=== PATIENT | female | born 1990 | race Hispanic/Latino ===

== ENCOUNTER 2017-11-25 19:32 | Emergency (ER) | payer MEDICAID ==
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
[2017-11-26] MEDS ORDERED: MOTRIN PO ONE (01:34)
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
[2017-11-26 06:01] VITALS: BP 114/71
== END 2017-11-26 02:10 | disposition home or self-care (01) ==
LOC: ED 19:32
DX: S13.4XXA Sprain of ligaments of cervical spine, initial encounter (principal); S39.012A Strain of muscle, fascia and tendon of lower back, initial encounter; F17.200 Nicotine dependence, unspecified, uncomplicated; V49.49XA Driver injured in collision with other motor vehicles in traffic accident, initial encounter; Y93.89 Activity, other specified; Y92.89 Other specified places as the place of occurrence of the external cause; Y99.8 Other external cause status
CPT/HCPCS: 36415; 72040; 72070; 84703

== ENCOUNTER 2019-08-08 16:24 | Observation (INO) | payer BC, MEDICAID ==
[2019-08-08] MEDS ORDERED: SODIUM CHLORIDE 0.9% 500 ML 500 ML IV SCH (17:47)
--- NOTE | 2019-08-08 19:25 | History and Physical Report ---
History of Present Illness Date of examination: 08/08/19 Date of admission: severe anemia with dizziness and fatigue Chief complaint: fatigue and dizziness History of present illness: Pt is a 29 y/o lady who presented to my office 08/07/18 with a complaint of fatigue and occasional dizziness. Laboratory studies showed Hgb of 5.8% today. Pt denies any evidence of GI bleeding. No menorhagia. Has a history of anemia but has not been worked up. direct admission was therefore requested Past History Past Medical History: anemia, other (depression) Past Surgical History: No surgical history Social history: smoking (marijuana) Family history: no significant family history Medications and Allergies Allergies Allergy/AdvReac Type Severity Reaction Status Date / Time No Known Allergies Allergy Unverified 11/25/17 21:31 Home Medications Medication Instructions Recorded Confirmed Last Taken Type Cyclobenzaprine [Flexeril] 10 mg PO QHS PRN #7 tablet 11/26/17 Unknown Rx Ibuprofen [Motrin] 600 mg PO Q8H PRN #30 tablet 11/26/17 Unknown Rx Active Meds: Active Medications Sodium Chloride (Nacl 0.9% 500 Ml) 500 mls @ 0 mls/hr IV ONCE DIPAK Stop: 08/09/19 17:46 Sodium Chloride (Sodium Chloride Flush Syringe 10 Ml) 10 ml IV BID DIPAK Sodium Chloride (Sodium Chloride Flush Syringe 10 Ml) 10 ml IV PRN PRN PRN Reason: LINE FLUSH Review of systems Constitutional: Well Nourished and Well developed. Fatigued Head: NC/ AT Eyes: Denies any visual impairments. No discharge from the eyes Nose: Denies any rhinorrhea or epistaxis Throats: Denies any post nasal drainage. Ears: Denies any hearing deficits Cardiovascular system: Denies any chest pain, shortness of breath, orthopnea, paroxysmal nocturnal dyspnea, or palpitation. Respiratory system: Denies any cough, difficulty breathing, wheezing, pleuritic chest pain, Gastrointestinal system: Denies any abdominal pain, nausea vomiting, hematemesis or melena. Neurological system: Denies any headache, slurred speech, facial droop, lateralizing weakness Genitalia system: Denies any dysuria, urinary frequency or urgency, urethral discharge Skin: No rashes, hyperpigmented spots. Hematological: Denies any cervical tenderness hemorrhages or petechia. Immunological: Denies any multiple septic spots, Lymphatic: Denies any generalized lymphadenopathy. Endocrine: Denies any polyuria, polydipsia, polyphagia. No heat or cold intolerance. Musculoskeletal system: No joint pain or swelling. Psych: No visual, tactile, auditory or hallucination Exam - Physical Exam Narrative exam: Constitutional: Well-nourished well-developed. In no distress Head: Normocephalic atraumatic Eyes: Conjunctival pallor. Pupils are equal round and reactive to light Nose: No enlarged turbinates, no septal deviation. Mouth: Moist mucous membranes. Neck: Supple no thyromegaly. No bruit. No JVD Heart: Regular rate and rhythm, S1-S2 normal. No rubs murmurs or gallop Lungs: Clear to auscultation bilaterally. no rales or rhonchi Abdomen: Soft, nontender. Bowel sound are present. Extremities: No edema, no cyanosis, no clubbing. Neuro: Alert oriented Oriented x3. No focal sensory or motor deficit. Skin: No rashes or hyperpigmented spots Musculoskeletal system: No joint pain or swelling Hematological: No petechia or subcutanous hemorrhages. Immunological: No multiple septic spots on the skin Lymphatic: No generalized lymphadenopathy Psychiatry: Euthymic. Calm. Assessment and Plan Pt is a 29 y/o lady who presented to my office 08/07/18 with a complaint of fatigue and occasional dizziness. Laboratory studies showed Hgb of 5.8% today. Pt denies any evidence of GI bleeding. No menorhagia. Has a history of anemia but has not been worked up. direct admission was therefore requested Admits to observation - Severe anemia Obtain TIBC,B12, folic acid, ferritin levels Stool for Hemoccult Type and screen 2 units of blood and transfuse each over 4 hours - Dizziness Secondary to severe anemia - Developed prophylaxis with SCDs - Advanced care planning: Patient is full code
[2019-08-08 21:18] LABS: Hematocrit 21.3 % (30.3-42.9); Hemoglobin 6.3 gm/dl (10.1-14.3); Mean Corpuscular HGB Conc 30 % (30-34); Platelet Count 378 K/mm3 (140-440); Red Blood Count 3.54 M/mm3 (3.65-5.03)
[2019-08-08 21:20] LABS: Mean Corpuscular Volume 60 fl (79-97)
[2019-08-08 21:28] LABS: INR 1.02 (0.87-1.13)
[2019-08-08 21:29] LABS: Partial Thromboplastin Time 28.8 Sec. (24.2-36.6)
[2019-08-08 21:45] LABS: Iron 10 ug/dL (37-170); Total Iron Binding Capacity 415 mcg/dL (250-450)
[2019-08-08 21:46] LABS: Alanine Aminotransferase 8 units/L (7-56); Albumin 4.4 g/dL (3.9-5); BUN/Creatinine Ratio 17; Blood Urea Nitrogen 10 mg/dL (7-17); Calcium 8.9 mg/dL (8.4-10.2); Hemolysis Index 16
[2019-08-08 22:03] LABS: Eosinophils % (Manual) 0 % (0.0-4.3); Total Cells Counted 100
[2019-08-08 22:04] LABS: Anisocytosis 1+; Platelet Estimate Consistent w Auto; Poikilocytosis 1+
[2019-08-08 22:05] LABS: Hypochromasia 2+; Target Cells 1+; Tear Drop Cells Few
[2019-08-09 06:35] VITALS: BP 108/60
--- NOTE | 2019-08-09 08:17 | Progress Note ---
Assessment and Plan Pt is a 29 y/o lady who presented to my office 08/07/18 with a complaint of fatigue and occasional dizziness. Laboratory studies showed Hgb of 5.8% today. Pt denies any evidence of GI bleeding. No menorhagia. Has a history of anemia but has not been worked up. direct admission was therefore requested - Severe anemia Iron leve very low. Stool for Hemoccult Had one unit of blood. will get second unit. F/u with post transfusion H/H - Dizziness Secondary to severe anemia - DVT prophylaxis with SCDs - Advanced care planning: Patient is full code - dispositon: d/c home after blood tranfusion Subjective Date of service: 08/09/19 Principal diagnosis: symtpomatic anemia Interval history: Dizziness improved Objective - Exam Narrative Exam: Constitutional: Well-nourished well-developed. In no distress Head: Normocephalic atraumatic Eyes: Conjunctival pallor. Pupils are equal round and reactive to light Nose: No enlarged turbinates, no septal deviation. Mouth: Moist mucous membranes. Neck: Supple no thyromegaly. No bruit. No JVD Heart: Regular rate and rhythm, S1-S2 normal. No rubs murmurs or gallop Lungs: Clear to auscultation bilaterally. no rales or rhonchi Abdomen: Soft, nontender. Bowel sound are present. Extremities: No edema, no cyanosis, no clubbing. Neuro: Alert oriented Oriented x3. No focal sensory or motor deficit. Skin: No rashes or hyperpigmented spots Musculoskeletal system: No joint pain or swelling Hematological: No petechia or subcutanous hemorrhages. Immunological: No multiple septic spots on the skin Lymphatic: No generalized lymphadenopathy Psychiatry: Euthymic. Calm. - Constitutional Vitals: Vital Signs - 12hr 08/09/19 08/09/19 08/09/19 02:20 02:35 03:05 Temperature 98.3 F 98.4 F 98.4 F Pulse Rate 68 69 69 Respiratory 18 20 20 Rate Blood Pressure 90/58 100/56 100/56 O2 Sat by Pulse 100 100 100 Oximetry 08/09/19 08/09/19 08/09/19 03:35 04:05 04:35 Temperature 98.3 F 98.4 F 98.3 F Pulse Rate 72 70 70 Respiratory 18 20 18 Rate Blood Pressure 100/58 105/58 108/60 O2 Sat by Pulse 100 100 100 Oximetry 08/09/19 08/09/19 08/09/19 05:15 05:30 06:00 Temperature 98.2 F 98.5 F 98.4 F Pulse Rate 69 70 70 Respiratory 20 20 18 Rate Blood Pressure 108/54 108/58 104/60 O2 Sat by Pulse 100 100 100 Oximetry 08/09/19 08/09/19 06:30 07:00 Temperature 98.4 F 98.4 F Pulse Rate 68 68 Respiratory 18 18 Rate Blood Pressure 108/60 108/60 O2 Sat by Pulse 100 100 Oximetry - Labs CBC & Chem 7: 08/08/19 21:00 08/08/19 21:00 Labs: Abnormal lab results 08/08/19 08/08/19 08/08/19 Range/Units 21:00 21:00 21:00 RBC 3.54 L (3.65-5.03) M/mm3 Hgb 6.3 L (10.1-14.3) gm/dl Hct 21.3 L (30.3-42.9) % MCV 60 L (79-97) fl MCH 18 L (28-32) pg RDW 21.0 H (13.2-15.2) % Sodium 136 L (137-145) mmol/L Carbon Dioxide 20 L (22-30) mmol/L Creatinine 0.6 L (0.7-1.2) mg/dL Iron 10 L (37-170) ug/dL Crossmatch 08/08/19 Range/Units 21:00 RBC (3.65-5.03) M/mm3 Hgb (10.1-14.3) gm/dl Hct (30.3-42.9) % MCV (79-97) fl MCH (28-32) pg RDW (13.2-15.2) % Sodium (137-145) mmol/L Carbon Dioxide (22-30) mmol/L Creatinine (0.7-1.2) mg/dL Iron (37-170) ug/dL Crossmatch See Detail
--- NOTE | 2019-08-09 08:41 | Discharge Summary ---
Providers - Providers Date of Admission: 08/08/19 20:22 Date of discharge: 08/09/19 Attending physician: FERNANDO MUNOZ 08/09/19 08:24 Consult to Physician [CONS] Urgent Comment: Consulting Provider: SUSANA VELASQUEZ Physician Instructions: Reason For Exam: irond def anemia Primary care physician: CASE PEÑA Hospitalization Reason for admission: symptomatic anemia Pertinent studies: CBC with Hgb of 6.3 and low iron of 10. Procedures: none Hospital course: Pt is a 29 y/o lady who presented to my office 08/07/18 with a complaint of fatigue and occasional dizziness. Laboratory studies showed Hgb of 5.8% today. Pt denies any evidence of GI bleeding. No menorhagia. Has a history of anemia but has not been worked up. direct admission was therefore requested. Had transfusion of 2 units of blood. 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 Disposition: DC- TO HOME OR SELFCARE Time spent for discharge: 35 m ins - Discharge Diagnoses (1) Anemia, iron deficiency Status: Acute (2) Dizziness Status: Acute Core Measure Documentation - Palliative Care Palliative Care/ Comfort Measures: Not Applicable - Core Measures Any of the following diagnoses?: none Exam - Physical Exam Narrative exam: Constitutional: Well-nourished well-developed. In no distress Head: Normocephalic atraumatic Eyes: Conjunctival pallor improved. Pupils are equal round and reactive to light Nose: No enlarged turbinates, no septal deviation. Mouth: Moist mucous membranes. Neck: Supple no thyromegaly. No bruit. No JVD Heart: Regular rate and rhythm, S1-S2 normal. No rubs murmurs or gallop Lungs: Clear to auscultation bilaterally. no rales or rhonchi Abdomen: Soft, nontender. Bowel sound are present. Extremities: No edema, no cyanosis, no clubbing. Neuro: Alert oriented Oriented x3. No focal sensory or motor deficit. Skin: No rashes or hyperpigmented spots Musculoskeletal system: No joint pain or swelling Hematological: No petechia or subcutanous hemorrhages. Immunological: No multiple septic spots on the skin Lymphatic: No generalized lymphadenopathy Psychiatry: Euthymic. Calm. - Constitutional Vitals: Temp Pulse Resp BP Pulse Ox 98.4 F 68 18 108/60 100 08/09/19 07:00 08/09/19 07:00 08/09/19 07:00 08/09/19 07:00 08/09/19 07:00 Plan Activity: advance as tolerated Weight Bearing Status: Weight Bear as Tolerated Diet: regular Follow up with: CASE PEÑA MD [Primary Care Provider] - 09/05/20 FERNANDO MUNOZ MD [Staff Physician] - 3 Days SUSANA VELASQUEZ MD [Staff Physician] - 7 Days Prescriptions: Ferrous Gluconate [Ferrous Gluconate 324 MG] 324 mg PO DAILY #30 tablet Cyclobenzaprine [Flexeril 10 MG TAB] 10 mg PO QHS PRN #7 tablet PRN Reason: Muscle Spasm Ascorbic Acid [Vitamin C] 500 mg PO DAILY #30 tab.chew
[2019-08-09 09:29] LABS: Hematocrit 29.3 % (30.3-42.9); Hematocrit 29.7 % (30.3-42.9); Hemoglobin 9.1 gm/dl (10.1-14.3); Mean Corpuscular HGB Conc 31 % (30-34); Platelet Count 352 K/mm3 (140-440); Red Blood Count 4.39 M/mm3 (3.65-5.03)
[2019-08-09 09:35] LABS: Mean Corpuscular Volume 68 fl (79-97); Red Cell Distribution Width 27.2 % (13.2-15.2)
[2019-08-09 09:49] LABS: Alanine Aminotransferase 7 units/L (7-56); Albumin 4.2 g/dL (3.9-5); BUN/Creatinine Ratio 16; Blood Urea Nitrogen 8 mg/dL (7-17); Calcium 8.8 mg/dL (8.4-10.2); Hemolysis Index 3
[2019-08-09 10:56] LABS: Eosinophils % (Manual) 0 % (0.0-4.3); Total Cells Counted 100
[2019-08-09 11:04] LABS: Anisocytosis 2+; Hypochromasia 2+; Platelet Estimate Consistent w Auto; Poikilocytosis 1+; Target Cells 1+; Tear Drop Cells Few
[2019-08-09] MEDS ORDERED: LORazepam 1 MG TAB PO SCH (22:00)
--- NOTE | 2019-08-10 07:54 | Event Note ---
Date: 08/09/19 [id number]
--- NOTE | 2019-08-12 21:33 | Consultation ---
REFERRED BY: Dr. Sandra. REASON FOR CONSULTATION: Anemia. HISTORY OF PRESENT ILLNESS: I saw the patient, a 29-year-old female on the medical floor. The patient was found to be anemic. She had fatigue. Hemoglobin was 5.8. She was admitted for transfusion support. Denies bleeding. Some menorrhagia present. No history of gastric surgery. No chest pain, no shortness of breath, no abdominal pain, no vomiting, no diarrhea. PAST MEDICAL HISTORY: Anemia. SURGICAL HISTORY: Nil. SOCIAL HISTORY: Marijuana. FAMILY HISTORY: Noncontributory. ALLERGIES: None. HOME MEDICATIONS: Include ibuprofen. PHYSICAL EXAMINATION: VITAL SIGNS: Temperature 98.4, pulse 68, respirations 18, BP 108/60. HEENT: Pallor present, no icterus. NECK: No neck lymph nodes. HEART: S1, S2. LUNGS: Clear to auscultation. ABDOMEN: Soft. EXTREMITIES: No calf tenderness. NEUROLOGIC: Alert, awake, oriented. LABORATORY DATA: White cell 5, hemoglobin at admission was 6.3 and then 9, MCV 60 and then 68, platelet 352. Potassium 4, creatinine 0.5, calcium 8.8. Serum iron low at 10, TIBC of 415, B12 of 438. ASSESSMENT AND PLAN: Microcytic anemia, likely secondary to iron deficiency anemia. Transfusion support has been given. She will be seen in the clinic setting for iron support. We will again look for other causes. Her cycles may have a role in her anemia. JOB# [id number] NM/NTS
== END 2019-08-09 11:42 | disposition home or self-care (01) ==
LOC: UNDOADMOB 16:24 → 3A 16:24
PROVIDERS: ADMIT Family Medicine; ATTEND Family Medicine
DX: D50.9 Iron deficiency anemia, unspecified (principal); R42 Dizziness and giddiness; R53.83 Other fatigue
CPT/HCPCS: 36415; 36430; 80053; 82607; 82747; 83550; 83735; 84100; 85007; 85014; 85018; 85025; 85610; 85730; 86850; 86900; 86901; 86920; G0378; G0379; J7040; P9016; 96360; 96361

== ENCOUNTER 2020-10-09 12:03 | Emergency (ER) | payer SELFPAY ==
[2020-10-09 12:20] VITALS: BP 126/60
[2020-10-09 13:48] LABS: Hematocrit 23.4 % (30.3-42.9); Hemoglobin 7.1 gm/dl (10.1-14.3); Mean Corpuscular HGB Conc 30 % (30-34); Platelet Count 457 K/mm3 (140-440); Red Blood Count 3.78 M/mm3 (3.65-5.03)
--- NOTE | 2020-10-09 13:50 | Emergency Department Report ---
ED General Adult HPI - General Chief complaint: Medical Clearance Stated complaint: WEIGHT LOSS Time Seen by Provider: 10/09/20 12:37 Source: patient Mode of arrival: Ambulatory Limitations: No Limitations - History of Present Illness Initial comments: 30 yr old female with pmhx of anemia presents to ED c/o weight loss. Patient states she has been having unexplained weight loss more significantly since about august 2020. She initially stated she was loosing 10 pounds per mth but she later then stated it was actually about 3 pounds/mth. She state she seems to notice s the weight loss more so after her MC. She states she started to intentionally loose weight about 3 yrs ago but she states the weight continued to drop without her trying last yr. She states she was initally 185 pounds but now she is 101 pounds. She states she did f/u with a PCP back in November 2019. She was found to be anemic and was sent here to ED for a blood transfusion. She states she has not been able to f/u with PCP because he moved and since then she has had issues with her insurance and so she has not been able to establish with a new PCP. She states she has been trying to gain weight on her own without success but she does admit that she does not have much of an appetite. She aslo reports intermittent lightheadness and occasional body aches. She denies vomiting (including self induced vomiting), diarrhea, chest pain, SOB, fever, chills, or any other associated symptoms. Patient does admit to having symptoms of depression for the past 4 years since the of her last daughter. She states that she has been dealing with it herself. She has not seen a psychiatrist or primary care doctor about it. She has not been on many medications for it in the past. She states that the stressors are mainly financial and family. Denies any other psychiatric issues. She denies any hallucinations, suicidal or homicidal ideation. She states that she used to smoke marijuana almost every day, but she stopped 2 days ago. She denies any other illicit drug use. Her last menstrual cycle she stated was September 29, 2020. She denies any changes to the characteristic of her menstrual cycle in the past 3 years. MD Complaint: Unexplained weight loss since around August 2020 -: Gradual, month(s) - Related Data Previous Rx's Medication Instructions Recorded Last Taken Type Ascorbic Acid [Vitamin C] 500 mg PO DAILY #30 tab.chew 08/09/19 Unknown Rx Cyclobenzaprine [Flexeril 10 MG 10 mg PO QHS PRN #7 tablet 08/09/19 Unknown Rx TAB] Docusate Sodium [Colace] 100 mg PO BID #60 capsule 10/09/20 Unknown Rx Ferrous Gluconate [Ferrous 324 mg PO DAILY #30 tablet 10/09/20 Unknown Rx Gluconate 324 MG] Allergies Allergy/AdvReac Type Severity Reaction Status Date / Time No Known Allergies Allergy Verified 10/09/20 12:18 ED Review of Systems ROS: Stated complaint: WEIGHT LOSS Other details as noted in HPI Comment: All other systems reviewed and negative Constitutional: denies: chills, fever Eyes: denies: eye pain, eye discharge, vision change ENT: denies: ear pain, throat pain Respiratory: denies: cough, shortness of breath, wheezing Cardiovascular: denies: chest pain, palpitations Endocrine: unexplained weight loss Gastrointestinal: denies: abdominal pain, nausea, vomiting, diarrhea, constipation, hematemesis, melena, hematochezia Genitourinary: denies: urgency, dysuria, discharge Musculoskeletal: denies: back pain, joint swelling, arthralgia Neurological: other (Positive for lightheaded and dizzy) Psychiatric: depression. denies: anxiety, auditory hallucinations, visual hallucinations, homicidal thoughts, suicidal thoughts Hematological/Lymphatic: denies: easy bleeding, easy bruising ED Past Medical Hx - Past Medical History Previous Medical History?: Yes Hx Hypertension: Yes Hx Heart Attack/AMI: No Hx Congestive Heart Failure: No Hx Diabetes: No Hx Sickle Cell Disease: No Hx Arthritis: No Hx Asthma: No Hx COPD: No Hx Tuberculosis: No Hx Dementia: No Hx HIV: No Additional medical history: anemia - Surgical History Past Surgical History?: Yes Additional Surgical History: x1 - Social History Substance Use Type: None, Marijuana - Medications Home Medications: Home Medications Medication Instructions Recorded Confirmed Last Taken Type Ascorbic Acid [Vitamin C] 500 mg PO DAILY #30 tab.chew 08/09/19 Unknown Rx Cyclobenzaprine [Flexeril 10 MG 10 mg PO QHS PRN #7 tablet 08/09/19 Unknown Rx TAB] Docusate Sodium [Colace] 100 mg PO BID #60 capsule 10/09/20 Unknown Rx Ferrous Gluconate [Ferrous 324 mg PO DAILY #30 tablet 10/09/20 Unknown Rx Gluconate 324 MG] ED Physical Exam - General Limitations: No Limitations General appearance: alert, in no apparent distress, other (Patient appears depressed, with intermittent crying during history) - Head Head exam: Present: atraumatic, normocephalic, normal inspection - Eye Eye exam: Present: normal appearance, PERRL, EOMI Pupils: Present: normal accommodation - ENT ENT exam: Present: normal exam, normal orophraynx, mucous membranes moist - Neck Neck exam: Present: normal inspection, full ROM - Respiratory Respiratory exam: Present: normal lung sounds bilaterally, respiratory distress - Cardiovascular Cardiovascular Exam: Present: regular rate, normal rhythm, normal heart sounds - GI/Abdominal GI/Abdominal exam: Present: soft. Absent: distended, tenderness - Neurological Exam Neurological exam: Present: alert, oriented X3, CN II-XII intact, normal gait - Psychiatric Psychiatric exam: Present: depressed. Absent: homicidal ideation, suicidal ideation - Skin Skin exam: Present: intact ED Course Vital Signs 10/09/20 12:19 Temperature 98.7 F Pulse Rate 64 Respiratory 16 Rate Blood Pressure 126/60 O2 Sat by Pulse 100 Oximetry ED Medical Decision Making - Lab Data Result diagrams: 10/09/20 13:23 10/09/20 13:23 - Medical Decision Making labs reviewed, CBC show H/H of 7.1/23.4, remaining labs unremarkable. Pt is well appearing, not toxic or in any pain nor respiratory distress. She is neurologically intact with normal gait. Her VS are stable. She is depressed but denies SI/HI or hallucinations. She does not want any psych eval while in ED. She has no active bleeding or other significant symptoms to suggest symptomatic anemia requiring admission. Discussed case with Dr Guajardo. Recommend oral iron supplements, and f/u with PCP. Discussed results with patient. Discussed tx plan with pt and recommend f/u with PCP. Pt expressed understanding of instructions and agree with plan. Pt was stable at time of d/c. Critical care attestation.: If time is entered above; I have spent that time in minutes in the direct care of this critically ill patient, excluding procedure time. ED Disposition Clinical Impression: Anemia Disposition: DC-01 TO HOME OR SELFCARE Is pt being admited?: No Does the pt Need Aspirin: No Condition: Stable Instructions: Preventing Iron Deficiency Anemia, Adult Additional Instructions: Take the iron supplements as prescribed. Drink lots of water. Follow-up with the primary care doctor listed on your discharge instructions. Return to the ER if your symptoms changes or worsens in any way. Prescriptions: Docusate Sodium [Colace] 100 mg PO BID #60 capsule Ferrous Gluconate [Ferrous Gluconate 324 MG] 324 mg PO DAILY #30 tablet Referrals: TAMIKO ROSA MD [Staff Physician] - 3-5 Days Time of Disposition: 15:39
[2020-10-09 14:09] LABS: Mean Corpuscular Volume 62 fl (79-97); Red Cell Distribution Width 21.1 % (13.2-15.2)
[2020-10-09 14:12] LABS: Alanine Aminotransferase 8 units/L (7-56); Albumin 4.8 g/dL (3.9-5); Blood Urea Nitrogen 9 mg/dL (7-17); Calcium 9.5 mg/dL (8.4-10.2); Hemolysis Index 0
[2020-10-09 14:15] LABS: BUN/Creatinine Ratio 15
[2020-10-09 15:17] LABS: Bilirubin,Urine NEG (Negative); Blood,Urine NEG (Negative); Color,Urine Yellow (Yellow); Mucus,Urine 3+ /HPF; Protein,Urine <15 mg/dL mg/dL (Negative); Urobilinogen,Urine < 2.0 mg/dL (<2.0)
[2020-10-09 15:22] LABS: Amphetamine Screen,Urine Negative; Benzodiazepines Screen,Urine Negative; Cocaine Screen,Urine Negative; Methadone Screen,Urine Negative; Opiate Screen,Urine Negative
[2020-10-09 16:09] LABS: Anisocytosis 1+; Hypochromasia 3+; Ovalocytes Few; Poikilocytosis 1+; Tear Drop Cells Few; Total Cells Counted 100
[2020-10-09 16:10] LABS: Platelet Estimate Consistent w Auto
[2020-10-09 16:27] LABS: Cannabinoid Screen,Urine Positive
== END 2020-10-09 15:50 | disposition home or self-care (01) ==
LOC: ED 12:03
DX: D64.9 Anemia, unspecified (principal); I10 Essential (primary) hypertension; F12.90 Cannabis use, unspecified, uncomplicated; Z79.899 Other long term (current) drug therapy; Z98.890 Other specified postprocedural states
CPT/HCPCS: 36415; 80053; 80307; 81001; 84443; 84703; 85007; 85025; 99283